=== PATIENT | male | born 1980 | race Caucasian/White ===

== ENCOUNTER 2016-09-10 17:46 | Emergency (ER) | payer SELFPAY ==
[2016-09-10 18:09] VITALS: BP 121/80; PULSE 97; TEMP 98; BMI 28.4
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
[2016-09-10] MEDS ORDERED: IBUPROFEN 600 MG TABLET (FP) PO ONE ×2 (19:23→19:32)
[2016-09-10] MEDS ORDERED: DIPHTH,PERTUSS(ACELL),TET 0.5 ML DISP.SYRIN IM ONE (19:23)
--- NOTE | 2016-09-10 19:24 | PDOC ---
History of Present Illness - General Chief Complaint: Laceration Stated Complaint: LACERATION Time Seen by Provider: 09/10/16 18:06 History Source: Patient Exam Limitations: No Limitations - History of Present Illness Initial Comments: 09/10/16 19:24 CHIEF COMPLAINT: Hand laceration HISTORY OF PRESENT ILLNESS: This is an otherwise healthy 36 year old male who presents for evaluation of laceration to the ldorsal aspect of aspect of the right 1st metacarpal with an electric saw which occurred just prior to arrival. He is complaining of pain at the site but denies numbness/tingling of the finger. He is unsure when he last received a tetanus booster. REVIEW OF SYSTEMS: GENERAL/CONSTITUTIONAL: No fever or chills. No weakness. No weight change. MUSCULOSKELETAL: Right first finger pain. SKIN: See HPI. NEUROLOGIC: No loss of sensation. HEMATOLOGIC/LYMPHATIC: No anemia, easy bleeding, or history of blood clots. ALLERGIC/IMMUNOLOGIC: No hives or skin allergy. No latex allergy. PHYSICAL EXAM: GENERAL: The patient is awake, alert, and fully oriented, in no acute distress. EXTREMITIES: Normal range of motion, no edema. Normal movement and sensation. Two-point discrimination intact. Able to flex finger at MCP, DIP, PIP. NEUROLOGICAL: Normal speech, normal gait. CN II-XII grossly intact. PSYCH: Normal mood, normal affect. SKIN: Stellate laceration over dorsal aspect of right first metacarpal. Contused tissue. Past History - Past Medical History Allergies/Adverse Reactions: Allergies Allergy/AdvReac Type Severity Reaction Status Date / Time No Known Allergies Allergy Verified 09/10/16 18:09 Home Medications: Ambulatory Orders NK [No Known Home Medication] 09/10/16 Anemia: No Asthma: No Cancer: No Cardiac Disorders: No CVA: No COPD: No CHF: No Dementia: No Diabetes: No GI Disorders: No Disorders: No HTN: No Hypercholesterolemia: No Liver Disease: No Seizures: No Thyroid Disease: No - Surgical History Abdominal Surgery: No Appendectomy: No Cardiac Surgery: No Cholecystectomy: No Lung Surgery: No Neurologic Surgery: No Orthopedic Surgery: Yes - Psycho/Social/Smoking Cessation Hx Anxiety: No Suicidal Ideation: No Smoking History: Never smoked Have you smoked in the past 12 months: No Information on smoking cessation initiated: No Hx Alcohol Use: No Drug/Substance Use Hx: No Substance Use Type: None *Physical Exam - Vital Signs Last Vital Signs Temp Pulse Resp BP Pulse Ox 98 F 97 H 18 121/80 99 09/10/16 18:05 09/10/16 18:05 09/10/16 18:05 09/10/16 18:05 09/10/16 18:05 Procedures - Laceration/Wound Repair Right Hand Wound Length: to 2.5 cm Wound Explored: clean Wound's Depth, Shape: irregular, flap, stellate, contused tissue Irrigated w/ Saline: Yes Betadine Prep: Yes Anesthesia: 1% Lidocaine Amount of Anesthetic (ccs): 2 Wound Repaired With: Sutures Suture Size/Type: 5:0 Number of Sutures: 4 Sterile Dressing Applied: Yes Splint Applied: Yes Type of Splint Applied: Volar Medical Decision Making - Medical Decision Making 09/10/16 20:13 A/P: 36 year old male with hand laceration. -Ibuprofen for pain -Tetanus booster -Wound irrigation and laceration repair -Volar splint *DC/Admit/Observation/Transfer Diagnosis at time of Disposition: Laceration of hand Qualifiers: Encounter type: initial encounter Laterality: right Qualified Code(s): S61.411A - Laceration without foreign body of right hand, initial encounter - Discharge Dispostion Disposition: HOME Condition at time of disposition: Stable Admit: No - Patient Instructions Printed Discharge Instructions: DI for Laceration Repair Additional Instructions: -Keep the wound clean, dry, and covered for 48 hours -After that you can wash gently with soap and water and pat dry -Apply bacitracin ointment once daily -Wear the splint as needed for comfort -Take ibuprofen if needed for pain -Return here in 7-10 days for suture removal, or sooner if you have redness at the site, fever, or any other concerning symptoms
== END 2016-09-10 20:07 | disposition home or self-care (01) ==
LOC: JERFT 17:46
PROC: 0JQJ0ZZ Repair Right Hand Subcutaneous Tissue and Fascia, Open Approach (ICD-10-PCS; principal; 2016-09-10)
PROC: 3E0234Z Introduction of Serum, Toxoid and Vaccine into Muscle, Percutaneous Approach (ICD-10-PCS; 2016-09-10)
DX: S61.411A Laceration without foreign body of right hand, initial encounter (principal); W29.8XXA Contact with other powered hand tools and household machinery, initial encounter; Y93.H3 Activity, building and construction; Y92.89 Other specified places as the place of occurrence of the external cause
CPT/HCPCS: 12001-25; 73130-TC-RT; 90471; 90715; 99281-25

== ENCOUNTER 2016-12-27 22:10 | Emergency (ER) | payer SELFPAY ==
[2016-12-27 23:02] VITALS: BP 113/74; PULSE 81; TEMP 98.3; BMI 29.2
[2016-12-27] MEDS ORDERED: IBUPROFEN 600 MG TABLET (FP) PO ONE (23:36)
[2016-12-27] MEDS ORDERED: METHOCARBAMOL 500 MG TABLET PO ONE (23:36)
[2016-12-27] MEDS ORDERED: OXYCODONE/APAP 5/325MG COMBO TABLET PO ONE (23:36)
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
[2016-12-28] MEDS ORDERED: LIDOCAINE 1%/EPI 1:100000 (50 ML MULTI DOSE VIAL) ONE (00:08)
[2016-12-28] MEDS ORDERED: OXYCODONE/APAP 5/325MG COMBO TABLET ONE (00:28)
[2016-12-28] MEDS ORDERED: METHOCARBAMOL 500 MG TABLET ONE (00:28)
[2016-12-28] MEDS ORDERED: IBUPROFEN 600 MG TABLET (FP) PO ONE (00:29)
== END 2016-12-28 02:30 | disposition home or self-care (01) ==
LOC: JER 22:10
PROC: 0H9JXZZ Drainage of Left Upper Leg Skin, External Approach (ICD-10-PCS; principal; 2016-12-27)
DX: L02.416 Cutaneous abscess of left lower limb (principal); M54.41 Lumbago with sciatica, right side; V99.XXXS Unspecified transport accident, sequela
CPT/HCPCS: 87070; 87186; 87205; 99281-25

== ENCOUNTER 2019-03-21 13:45 | Emergency (ER) | payer SELFPAY | END 2019-03-21 15:40 | disposition home or self-care (01) | LOC: JERFT 13:45 ==

== ENCOUNTER 2019-06-16 08:39 | Emergency (ER) | payer SELFPAY ==
[2019-06-16 08:48] VITALS: BP 113/68; PULSE 92; TEMP 98.6; BMI 35.2
[2019-06-16] MEDS ORDERED: KETOROLAC TROMETHAMINE 60 MG/2 ML VIAL IM ONE (09:13)
[2019-06-16] MEDS ORDERED: KETOROLAC TROMETHAMINE 60 MG/2 ML VIAL ONE (09:16)
--- NOTE | 2019-06-16 09:27 | PDOC ---
History of Present Illness - General History Source: Patient Exam Limitations: Clinical Condition - History of Present Illness Initial Comments: 06/16/19 10:16 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 Patient reports severe pain when he presses on posterior aspect of left calf and lower leg. Denies numbness or tingling sensation. Denies trauma or injury to left leg. Patient did not take anything for pain Is this a multiple visit Asthma Patient?: No Timing/Duration: 24 hours <NikunjRuperto galeana Jose Guadalupe - Last Filed: 06/16/19 11:45> <Raymundo Catalan - Last Filed: 06/18/19 09:18> - General Chief Complaint: Pain, Acute Stated Complaint: LT. LEG PAIN Time Seen by Provider: 06/16/19 08:58 Past History - Past Medical History Anemia: No Asthma: No Cancer: No Cardiac Disorders: No CVA: No COPD: No CHF: No Dementia: No Diabetes: No GI Disorders: No Disorders: No HTN: No Hypercholesterolemia: No Liver Disease: No Seizures: No Thyroid Disease: No - Surgical History Abdominal Surgery: No Appendectomy: No Cardiac Surgery: No Cholecystectomy: No Lung Surgery: No Neurologic Surgery: No Orthopedic Surgery: Yes - Psycho Social/Smoking Cessation Hx Smoking History: Never smoked Have you smoked in the past 12 months: No Hx Alcohol Use: No Drug/Substance Use Hx: No Substance Use Type: None <NikunjRuperto - Last Filed: 06/16/19 11:45> <Raymundo Catalan - Last Filed: 06/18/19 09:18> - Past Medical History Allergies/Adverse Reactions: Allergies Allergy/AdvReac Type Severity Reaction Status Date / Time No Known Allergies Allergy Verified 06/16/19 08:41 Home Medications: Ambulatory Orders Clindamycin [Cleocin -] 150 mg PO Q6H #28 capsule 12/28/16 Ibuprofen 600 mg PO TID PRN #30 tablet 12/28/16 Lidocaine 5% Patch [Lidoderm Patch -] 1 patch TP DAILY PRN #30 patch 12/28/16 Methocarbamol [Robaxin -] 500 mg PO TID PRN #30 tablet 12/28/16 Oxycodone HCl/Acetaminophen [Percocet 5-325 mg Tablet -] 1 tab PO TID PRN #10 tablet MDD 3 12/28/16 Clobetasol Propionate [Temovate] 30 gm TP BID #1 oint...g. 03/21/19 Methylprednisolone [Medrol Dose Misha] 4 mg PO ASDIR #21 tablet 03/21/19 Methocarbamol [Robaxin -] 500 mg PO BID #14 tablet 06/16/19 Naproxen 500 mg PO BID PRN #20 tablet 06/16/19 Review of Systems - Review of Systems Able to Perform ROS?: Yes Is the patient limited Green[place]ic proficient: No Constitutional: No: Chills, Fever, Malaise HEENTM: No: Symptoms Reported, See HPI, Eye Pain, Blurred Vision, Tearing, Recent change in vision, Double Vision, Cataracts, Ear Pain, Ocular Prothesis, Ear Discharge, Nose Pain, Nose Congestion, Tinnitus, Nose Bleeding, Hearing Loss , Throat Pain, Throat Swelling, Mouth Pain, Dental Problems, Difficulty Swallowing, Mouth Swelling, Other Respiratory: No: Symptoms reported, See HPI, Cough, Orthopnea, Shortness of Breath, SOB with Exertion, SOB at Rest, Stridor, Wheezing, Productive cough, Hemoptysis, Other Cardiac (ROS): No: Symptoms Reported, See HPI, Chest Pain, Edema, Irregular Heart Rate, Lightheadedness, Palpitations, Syncope, Chest Tightness, Other ABD/GI: No: Symptoms Reported, Nausea, Vomiting Musculoskeletal: Yes: Symptoms Reported, See HPI, Muscle Pain (left calf worsening pain) Integumentary: No: Symptoms Reported, See HPI, Change in Color Neurological: No: Symptoms reported, Numbness, Paresthesia, Tingling All Other Systems: Reviewed and Negative <Ruperto Calvin Jose Guadalupe - Last Filed: 06/16/19 11:45> *Physical Exam - Vital Signs Last Vital Signs Temp Pulse Resp BP Pulse Ox 98.6 F 92 H 18 113/68 98 06/16/19 08:41 06/16/19 08:41 06/16/19 08:41 06/16/19 08:41 06/16/19 08:41 - Physical Exam General Appearance: Yes: Nourished, Appropriately Dressed, Apparent Distress, Moderate Distress HEENT: positive: Normal ENT Inspection Neck: positive: Supple Respiratory/Chest: positive: Lungs Clear, Normal Breath Sounds. negative: Respiratory Distress, Accessory Muscle Use Cardiovascular: positive: Regular Rhythm, Regular Rate Musculoskeletal: positive: Normal Inspection, Muscle Spasm (moderate tenderness to left calf muscle . no swelling to calf muscle). negative: Other (negative horman's sign of left LE) Extremity: positive: Normal Capillary Refill, Normal Inspection, Normal Range of Motion, Calf Tenderness (left calf muscle). negative: Erythema, Other (no increased warmth to left calf muscle) Integumentary: positive: Normal Color, Warm. negative: Erythema, Clammy Neurologic: positive: Fully Oriented, Alert, Normal Mood/Affect, Normal Response , Motor Strength 5/5 <Ruperto Calvin - Last Filed: 06/16/19 11:45> - Vital Signs Last Vital Signs Temp Pulse Resp BP Pulse Ox 98.6 F 92 H 18 113/68 98 06/16/19 08:41 06/16/19 08:41 06/16/19 08:41 06/16/19 08:41 06/16/19 08:41 <Raymundo Catalan - Last Filed: 06/18/19 09:18> ED Treatment Course - RADIOLOGY Radiology Studies Ordered: Category Date Time Status DUPLEX VASCUL US-1 LEG [US] Stat Ultrasound 06/16/19 09:11 Ordered <Ruperto Calvin - Last Filed: 06/16/19 11:45> - Medications Given in the ED: ED Medications Discontinued Medications Generic Name Dose Route Start Last Admin Trade Name Gissel PRN Reason Stop Dose Admin Ketorolac Tromethamine 60 mg 06/16/19 09:13 06/16/19 09:27 Toradol Injection - IM 06/16/19 09:14 60 mg ONCE ONE Administration Methocarbamol 1,000 mg 06/16/19 11:39 06/16/19 11:47 Robaxin - PO 06/16/19 11:40 1,000 mg ONCE ONE Administration <Raymundo Catalan - Last Filed: 06/18/19 09:18> Medical Decision Making - Medical Decision Making 06/16/19 10:17 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 Patient reports severe pain when he presses on posterior aspect of left calf and lower leg. Denies numbness or tingling sensation. Denies trauma or injury to left leg. Patient did not take anything for pain Exam significant for moderate tenderness over left calf muscle and posterior lower leg. No increased warmth or swelling to calf muscle leg. Negative Homans sign. Symptoms likely muscle strain with spasm versus DVT. Toradol 60 mg IM ordered for pain. Duplex of left lower extremity ordered to rule out DVT 06/16/19 11:45 Duplex ultrasound shows no blood clot or DVT. Patient symptoms likely a muscle strain with spasm. Robaxin thousand milligrams p.o. ordered for spasm. Patient stable for discharge on naproxen as needed for pain and Robaxin for spasm with strict follow-up <Ruperto Calvin - Last Filed: 06/16/19 11:45> - Medical Decision Making 06/18/19 09:18 The patient was seen and evaluated in conjunction with ROSSY Calvin under my direct supervision, ancillary studies were reviewed. I agree with the plan as outlined by ROSSY Calvin. <Raymundo Catalan - Last Filed: 06/18/19 09:18> Discharge - Discharge Information Problems reviewed: Yes - Admission No <Ruperto Calvin - Last Filed: 06/16/19 11:45> <Raymundo Catalan - Last Filed: 06/18/19 09:18> - Discharge Information Clinical Impression/Diagnosis: Tenderness of left calf Muscle strain of left lower leg Qualifiers: Encounter type: initial encounter Qualified Code(s): S86.912A - Strain of unspecified muscle(s) and tendon(s) at lower leg level, left leg, initial encounter Condition: Improved Disposition: HOME - Additional Discharge Information Prescriptions: Methocarbamol [Robaxin -] 500 mg PO BID #14 tablet Naproxen 500 mg PO BID PRN #20 tablet PRN Reason: pain - Patient Discharge Instructions Additional Instructions: Your ultrasound the leg shows no blood clot. Your symptoms likely caused by muscle spasm. Take prescribed medication as needed for pain and spasm. Apply hot compress to left leg as needed for pain. Come back to emergency room if worsening pain, shortness of breath, chest pain.
[2019-06-16] MEDS ORDERED: METHOCARBAMOL 500 MG TABLET PO ONE (11:39)
[2019-06-16] MEDS ORDERED: METHOCARBAMOL 500 MG TABLET ONE (11:42)
== END 2019-06-16 11:47 | disposition home or self-care (01) ==
LOC: JER 08:39
PROC: 3E0233Z Introduction of Anti-inflammatory into Muscle, Percutaneous Approach (ICD-10-PCS; principal; 2019-06-16)
DX: S86.912A Strain of unspecified muscle(s) and tendon(s) at lower leg level, left leg, initial encounter (principal); X58.XXXA Exposure to other specified factors, initial encounter; Y93.89 Activity, other specified; Y92.89 Other specified places as the place of occurrence of the external cause
CPT/HCPCS: 93971-TC; 99282-25